=== PATIENT | female | born 1990 | race Two or more races ===

== ENCOUNTER 2017-07-02 09:14 | Emergency (ER) | payer OTHER ==
--- NOTE | 2017-07-02 11:30 | UC ---
UC General HPI - HPI Summary HPI Summary: 27 yo female c/o lower back pain since Sat (today is Saturday), concerned for possible uti. Hx uti's in the past. no fever / chills. No rash. No sob / cp / palpitations. Denies vaginal discharge or female related concerns. - History of Current Complaint Chief Complaint: [facility] Stated Complaint: BLADDER INFECTION Time Seen by Provider: 07/02/17 10:28 Hx Obtained From: Patient Hx Last Menstrual Period: 06/04 - Allergy/Home Medications Allergies/Adverse Reactions: Allergies Allergy/AdvReac Type Severity Reaction Status Date / Time No Known Allergies Allergy Verified 07/02/17 09:55 PMH/Surg Hx/FS Hx/Imm Hx Previously Healthy: Yes - see hpi - Surgical History Surgical History: Yes Surgery Procedure, Year, and Place: GB removed - Family History Known Family History: Positive: None Family History: no cardio vascular issues in bio family - Social History Alcohol Use: None Substance Use Type: None Smoking Status (MU): Never Smoked Tobacco Have You Smoked in the Last Year: No - Immunization History Most Recent Influenza Vaccination: fall 2014 Most Recent Tetanus Shot: unsure Most Recent Pneumonia Vaccination: never Review of Systems Constitutional: Negative Skin: Negative Eyes: Negative ENT: Negative Respiratory: Negative Cardiovascular: Negative Gastrointestinal: Negative Genitourinary: Other - see hpi Motor: Negative Neurovascular: Negative Musculoskeletal: Negative Neurological: Negative Psychological: Negative Is Patient Immunocompromised?: No All Other Systems Reviewed And Are Negative: Yes Physical Exam Triage Information Reviewed: Yes Appearance: Well-Nourished Vital Signs: Initial Vital Signs Temp 98.6 F 07/02/17 09:49 Vital Signs Reviewed: Yes Eye Exam: Normal - grossly normal ENT Exam: Normal - grossly normal Neck exam: Normal Respiratory: Positive: Chest non-tender, Lungs clear, Normal breath sounds, No respiratory distress, No accessory muscle use Cardiovascular Exam: Normal Cardiovascular: Positive: RRR, No Murmur, Pulses Normal Abdomen Description: Positive: Nontender, No Organomegaly, Other: - lower back tenderness, just lower from cva regions. Diffuse. No point focal tenderness. No rash visible or reported. Musculoskeletal Exam: Normal Neurological Exam: Normal Psychological Exam: Normal Skin Exam: Normal Course/Dx - Course Course Of Treatment: Reviewed urine dip with pt. Reviewed previous urine cx results as available in [facility]. Kidney / renal issues are possible; however, dip ok. Urine cx sent. Blood work ordered. Will obtain today and f/u pcp this week. Will seek medical attention for worse or new problems in the meantime. - Differential Dx - Multi-Symptom Provider Diagnoses: Back pain Discharge - Discharge Plan Condition: Stable Disposition: HOME Prescriptions: Cefuroxime Axetil [Ceftin 500 MG TAB] 500 mg PO BID #14 tab Ibuprofen TAB* [Motrin TAB* 600 MG] 600 mg PO Q8H PRN #30 tab PRN Reason: Pain Patient Education Materials: Back Pain (ED) Referrals: Aleksandar Rogers MD [Primary Care Provider] - Additional Instructions: Follow up Dr. Rogers end of this week, if possible. Seek medical attention for worse or new problems in the meantime.
--- NOTE | 2017-07-04 07:16 | UC ---
Progress - Progress Note Progress Note: notify pt she does not have a UTI stop antibiotics
== END 2017-07-02 11:40 | disposition home or self-care (01) ==
LOC: UCEAST 09:14
DX: M54.5 Low back pain (principal); Z87.440 Personal history of urinary (tract) infections; Z32.02 Encounter for pregnancy test, result negative
CPT/HCPCS: 81003; 84702; 87086; 99212; G0463

== ENCOUNTER 2017-07-05 08:39 | Emergency (ER) | payer OTHER ==
--- NOTE | 2017-07-05 09:35 | ED ---
Back Pain - HPI Summary HPI Summary: Pt here w/ LBP x 7 days. Cramping, sharp pain. Noticed after giving 1 year old twin kids a bath Saturday - reaching/lifting into tub. No acute pain w/ lifting , but noticed pain later that night. Denies numbness, tingling, weakness, radiating pain into buttock/leg. Pain is worse w/ bending forward but not always consistent. She has tried advil w/ some relief. Has been urinating more than usual but reports she's also been drinking lots of water which typically results in increase urination. Denies dysuria, hematuria, urgency. She does however report some lower pelvic cramping. LMP beginning of May - thought she may have had her period by now but hasn't - admits her periods have been irregular since giving to her twins 1 year ago. Has been sexually active and no form of control at this time - denies vaginal d/c, pain or irritation. H/o chlamydia as a teen - tx'd and retested - no concerns for this today and no injury to pelvis to report. Also denies [employer] issues such as ovarian cyst, fibroids, etc. H/o cholecystectomy - no residual complications. BM's have been normal. Was seen [facility] few days ago. U/A performed and neg for infection. Eating and drinking well w/o pain. - History of Current Complaint Chief Complaint: EDBackInjuryPain Stated Complaint: BACK PAIN Time Seen by Provider: 07/05/17 09:10 Hx Obtained From: Patient Hx Last Menstrual Period: 06/04 Pain Intensity: 5 - Allergies/Home Medications Allergies/Adverse Reactions: Allergies Allergy/AdvReac Type Severity Reaction Status Date / Time No Known Allergies Allergy Verified 07/05/17 08:56 PMH/Surg Hx/FS Hx/Imm Hx Previously Healthy: Yes Endocrine/Hematology History: Denies: Hx Anticoagulant Therapy, Hx Blood Disorders, Hx Diabetes, Hx Thyroid Disease Cardiovascular History: Denies: Hx Hypertension Respiratory History: Denies: Hx Asthma, Hx Chronic Obstructive Pulmonary Disease (COPD) 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 Denies: Hx Ulcer - Surgical History Surgery Procedure, Year, and Place: GB removed Infectious Disease History: No Infectious Disease History: Denies: Hx Hepatitis, Hx Human Immunodeficiency Virus (HIV), History Other Infectious Disease, Traveled Outside the [place] in Last 30 Days - Family History Known Family History: Positive: None Family History: no cardio vascular issues in bio family - Social History Lives: With Family Alcohol Use: None Hx Substance Use: No Substance Use Type: Reports: None Hx Tobacco Use: No Smoking Status (MU): Never Smoked Tobacco Have You Smoked in the Last Year: No Review of Systems Constitutional: Negative Negative: Fever, Chills Cardiovascular: Negative Negative: Chest Pain Respiratory: Negative Negative: Shortness Of Breath Positive: Abdominal Pain - mild lower pelvic cramping per pt. Negative: Vomiting, Diarrhea, Nausea Positive: see HPI Positive: Arthralgia, Myalgia Skin: Negative Neurological: Negative Psychological: Normal All Other Systems Reviewed And Are Negative: Yes Physical Exam Triage Information Reviewed: Yes Vital Signs On Initial Exam: Initial Vitals Temp Pulse Resp BP Pulse Ox 97.8 F 70 16 129/65 99 07/05/17 08:41 07/05/17 08:41 07/05/17 08:41 07/05/17 08:41 07/05/17 08:41 Vital Signs Reviewed: Yes Appearance: Positive: Well-Appearing, No Pain Distress, Well-Nourished Skin: Positive: Warm, Dry - no erythema/no ecchymosis over affected area; no jaundice Head/Face: Positive: Normal Head/Face Inspection Eyes: Positive: Normal, EOMI, Conjunctiva Clear - anicteric sclera ENT: Positive: Normal ENT inspection, Hearing grossly normal, Pharynx normal - mucosa moist Neck: Positive: Supple, Nontender, No Lymphadenopathy Respiratory/Lung Sounds: Positive: Clear to Auscultation, Breath Sounds Present. Negative: Rales, Rhonchi, Wheezes Cardiovascular: Positive: Normal, RRR, Pulses are Symmetrical in both Upper and Lower Extremities, S1, S2. Negative: Murmur, Rub Abdomen Description: Positive: Nontender, No Organomegaly, Soft, CVA Tenderness (R) - equivocal (pt reports discomfort but not acute/intense pain). Negative: CVA Tenderness (L), Distended, Guarding, Hepatomegaly Bowel Sounds: Positive: Present Pelvic Exam: Positive: other - deferred Musculoskeletal: Positive: Strength/ROM Intact - spinous pp and paraspinal mm NTTP - pt is able to mobilize lumbar spine in all direction and with extension is able to reproduce pain but only once - not repeatable; resisted movements of all LE's do not reproduce pain Neurological: Positive: Normal, Sensory/Motor Intact, Alert, Oriented to Person Place, Time, CN Intact II-III Psychiatric: Positive: Normal - shy - Omer Coma Scale Coma Scale Total: 15 Diagnostics - Vital Signs Vital Signs Temp Pulse Resp BP Pulse Ox 07/05/17 08:41 97.8 F 70 16 129/65 99 - Laboratory Result Diagrams: 07/05/17 10:20 07/05/17 10:20 Diagnostic Studies Comment: Renal U/S: report reviewed and w/o acute findings Lab Statement: Any lab studies that have been ordered have been reviewed, and results considered in the medical decision making process. Back Pain Course/Dx - Course Course Of Treatment: Pt presents w/ h/o Rt flank pain x 1 week. Noticed after bathing/lifting kids from bath. Was seen at and U/A was neg. She's had relief w/ ibuprofen but concerned as pain is still present - improving though. She is concerned about her kidney. Labs, U/A and renal U/S ordered d/t low suspicion of acute renal injury from stone/infection/etc. Results were unremarkable for acute pathology. 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 She was d/c'd w/ muscle strain education and danger s/sx reviewed for when to return to ED. Pt agrees w/ plan. - Diagnoses Provider Diagnoses: Low back strain Discharge - Discharge Plan Condition: Stable Disposition: HOME Patient Education Materials: Muscle Strain (ED) Referrals: Aleksandar Rogers MD [Primary Care Provider] - Additional Instructions: You appear to have a strained back muscle. This was most likely the result of you bending into bathtub. You may use ice alternating with heat and gently stretch. Avoid reaching to lift - get close to child/objects when lifting and use your legs to lift, not your back. You may also try focusing to contract your abdominal muscle before lifting to also provide your back with more support. If you abdominal muscles are weak, start an exercise program once your back heals. Discuss w/ PCP for safe exercises. You may also take ibuprofen with food for pain. *If you develop numbness, tingling, weakness, pain with urination or blood in urine, return to ED
--- NOTE | 2017-07-05 10:18 | RAD ---
Indication: Right flank pain. Real-time sonography of the kidney was performed. The right kidney measures 10.9 x 3.8 x 4.4 cm with no hydronephrosis. IMPRESSION: Unremarkable right kidney.
[2017-07-05 10:34] LABS: Hematocrit 39 % (35-47); Hemoglobin 13.9 g/dl (12.0-16.0); Mean Corpuscular HGB Conc 36 g/dl (31-36); Mean Corpuscular Hemoglobin 31 pg (27-31); Mean Corpuscular Volume 87 fL (80-97); Mean Platelet Volume 9 um3 (7.4-10.4); Red Blood Count 4.43 10^6/ul (4.0-5.4); Red Cell Distribution Width 17 % (10.5-15); White Blood Count 4.7 10^3/ul (3.5-10.8)
[2017-07-05 10:41] LABS: Comments Flag Yes
[2017-07-05 10:49] LABS: ALT 14 U/L (7-52); AST 22 U/L (13-39); Albumin 5.2 g/dL (3.2-5.2); Alkaline Phosphatase 65 U/L (34-104); Anion Gap 7 mmol/L (2-11); BUN/Creatinine Ratio 14.3 (8-20); Blood Urea Nitrogen 11 mg/dL (6-24); C Reactive Protein < 1.00 mg/L (< 5.00); CO2 Carbon Dioxide 27 mmol/L (22-32); Calcium 9.6 mg/dL (8.6-10.3); Chloride 104 mmol/L (101-111); EGFR African American 116.5 (>60); EGFR Non-African American 90.6 (>60); Globulin 2.2 g/dL (2-4); Glucose 88 mg/dL (70-100); Lipase 21 U/L (11.0-82.0); Potassium 3.3 mmol/L (3.5-5.0); Sodium 138 mmol/L (133-145); Total Protein 7.4 g/dL (6.4-8.9)
[2017-07-05 11:55] LABS: Urine Bilirubin Negative (Negative); Urine Glucose Negative (Negative); Urine Nitrite Negative (Negative)
[2017-07-05 12:31] VITALS: BP 134/61
== END 2017-07-05 12:31 | disposition home or self-care (01) ==
LOC: ED 08:39
DX: S33.5XXA Sprain of ligaments of lumbar spine, initial encounter (principal); X50.0XXA Overexertion from strenuous movement or load, initial encounter; Y93.F1 Activity, caregiving, bathing; Y92.9 Unspecified place or not applicable
CPT/HCPCS: 36415; 76775; 80053; 81003; 83605; 83690; 84702; 85025; 86140; 99282